=== PATIENT | female | born 1950 | race Caucasian/White ===

== ENCOUNTER → 2021-07-28 | Day surgery (SDC) | payer MEDICARE, OTHER ==
[~2021-07-28] VITALS: Ht 162.6 cm; Wt 82.5 kg
[~2021-07-28] MED LIST: CUTIVATE15GMOINT TOP; FLEXERIL5 MG PO; LEXAPRO 10MG10 MG PO; LIPITOR20 MG PO; MOBIC 7.5MG7.5 MG PO; NEURONTIN600 MG/TAB PO; NORCO 325 MG-51 TAB PO; SYNTHROID0.112 MG/T PO; TRIAMC 0.1 454 TOP
--- NOTE | 2021-07-28 08:06 | NUR ---
PATIENT BROUGHT BACK TO [facility], AMBULATED WITHOUT DIFFICULTY. HISTORY AND CONSENT REVIEWED AND SIGNED. HEART SOUNDS REGULAR, LUNG SOUNDS CLEAR, BOWEL SOUNDS ACTIVE. IV STARTED, INFUSING WITHOUT DIFFICULTY. MRSA SWAB PERFORMED, D/T HISTORY IN OLD WOUND. VITAL SIGNS STABLE. CALL GARCIA WITHIN REACH, WARM BLANKET PROVIDED. 0935- THIS RN WAS INFORMED THAT PATIENTS SURGERY IS CANCELLED. IV REMOVED. PATIENT TO GET DRESSED AT THIS TIME. BROUGHT DOWN TO LOBBY. ALL BELONGINGS IN HAND. OFFICE TO CALL PATIENT AND RESCHEDULE..
[2021-07-28 09:21] VITALS: BP 140/78; PULSE 67; TEMP 98.3
== END ==
LOC: SDCO 07:51
DX: M77.51 Other enthesopathy of right foot and ankle (principal); G57.61 Lesion of plantar nerve, right lower limb; M79.671 Pain in right foot; Z53.8 Procedure and treatment not carried out for other reasons; E03.9 Hypothyroidism, unspecified; G89.29 Other chronic pain; F41.9 Anxiety disorder, unspecified; I25.10 Atherosclerotic heart disease of native coronary artery without angina pectoris; G47.33 Obstructive sleep apnea (adult) (pediatric); Z79.899 Other long term (current) drug therapy; Z79.891 Long term (current) use of opiate analgesic; Z86.711 Personal history of pulmonary embolism; F33.42 Major depressive disorder, recurrent, in full remission; E78.5 Hyperlipidemia, unspecified; K21.9 Gastro-esophageal reflux disease without esophagitis; M19.90 Unspecified osteoarthritis, unspecified site
CPT/HCPCS: J7120

== ENCOUNTER → 2022-07-01 | Outpatient (CLI) | payer MEDICARE | LOC: COL.RAD 10:43 | DX: C85.11 Unspecified B-cell lymphoma, lymph nodes of head, face, and neck (principal) | CPT/HCPCS: Q9967 ==

== ENCOUNTER 2023-06-23 01:46 | Emergency (ER) | payer MEDICARE ==
[~2023-06-23] VITALS: Ht 162.6 cm; Wt 78.2 kg
[~2023-06-23 01:46] MED LIST changes: +BACTRIM DS 8001 TAB PO
[2023-06-23 01:51] VITALS: BP 167/88; TEMP 98
[2023-06-23 02:24] VITALS: PULSE 72
== END 2023-06-23 02:25 | disposition home or self-care (01) ==
LOC: COL.ER 01:46
DX: S05.02XA Injury of conjunctiva and corneal abrasion without foreign body, left eye, initial encounter (principal); X58.XXXA Exposure to other specified factors, initial encounter